=== PATIENT | male | born 1985 | race Caucasian/White ===

== ENCOUNTER → 2023-04-18 | Outpatient (CLI) | payer BC, SELFPAY ==
[2023-04-18 10:57] LABS: Absolute Lymphocyte Count 2.05 X10^3/uL (0.83-4.51); Basophil# 0.09 X10^3/uL; Eosinophil# 0.19 X10^3/uL; Hematocrit 50.8 % (40-54); Hemoglobin 16.9 g/dL (13.0-16.5); Lymphocyte # 2.05 X10^3/ul (0.83-4.51); Lymphocyte % 22.1 % (19-41); Mean Corp Hgb Conc 33.3 g/dL (32-36); Mean Corpuscular Hgb 27.6 pg (27.0-32.0); Mean Platelet Vol. 8.7 fl (6.2-12.0); Monocyte# 0.91 X10^3/uL; Monocyte% 9.8 % (0-10); NRBC Flagged by Analyzer 0 % (0-5); Neutrophil # 5.96 X10^3/uL (2.7-7.7); Neutrophil % 64.3 % (47-70); Platelet Count 268 K/mm3 (150-450); RBC Distribution Width CV 12.9 % (11.6-14.6); RBC Distribution Width SD 38.5 fl (35.1-43.9); Red Blood Count 6.12 M/mm3 (4.6-6.2); White Blood Count 9.3 K/mm3 (4.4-11.0)
[2023-04-18 11:24] LABS: ALB/GLOB Ratio 0.9 RATIO (0.9-2.4); AST(SGOT) 17 U/L (15-37); Alanine Aminotransfer ALT/SGPT 41 U/L (16-61); Albumin, Serum 3.6 g/dL (3.2-5.0); Alkaline Phosphatase 105 U/L (45-117); Anion Gap 5 (5-15); BUN 11 mg/dL (7-18); BUN/Creat Ratio 10.7 RATIO (10-20); Calcium,Total 9.1 mg/dL (8.5-10.1); Chloride 106 mmol/L (98-107); Cholesterol 235 mg/dL (200); Creatinine, Serum 1.03 mg/dL (0.70-1.30); EST Glomerular Filtration Rate 87 mL/min (>60); Est Glom Filt Rate - Afr Amer 105 mL/min (>60); Globulin 4.1 g/dL (2.2-4.2); Glucose 92 mg/dL (74-106); High Density Lipoprotein 45 mg/dL; PSA,Total- Diagnostic 0.96 ng/mL (0.0-4.0); Potassium 3.7 mmol/L (3.5-5.1); Protein, Total 7.7 g/dL (6.4-8.2); Sodium Level 136 mmol/L (136-145); Triglycerides 121 mg/dL; Very Low Density Lipoprotein 24 mg/dL (5-40)
== END | disposition home or self-care (01) ==
LOC: LAB 10:26
PROVIDERS: PCP Nurse Practitioner Family; Referring Provider Nurse Practitioner Family; Visit Provider Nurse Practitioner Family
DX: Z00.00 Encounter for general adult medical examination without abnormal findings (principal)
CPT/HCPCS: 36415; 80053; 80061; 84153; 85025

== ENCOUNTER → 2023-10-17 | Outpatient (CLI) | payer BC, SELFPAY ==
--- OUTSIDE RECORDS SUMMARY | 2023-10-17 10:33 | XMS RPT_ITS | CCD ---
Author Name Unknown Address [facility] [facility] [address] [place] [address] Organization [facility] Care Team Providers Care Balance Engineer Name Role Phone Alejandro Lima MD Unavailable Medications Current Medications Medication Drug Class(es) Dates Sig (Normalized) Sig (Original) Pediatric Oriekksk-Sucebyoi-P (MULTIVITAMINS WITH MINERALS/IRON) chewable tablet (1 source) Start: 07-11-2014 take 1 tablet by mouth once daily Pediatric Multivit-Minera ls-C (MULTIVITAMINS WITH MINERALS/IRON) chewable tablet Take 1 Tab by mouth daily. 30 Tab 2 07/11/2014 Active sulfamethoxazole 800 mg / trimethoprim 160 mg oral tablet (1 source) Dihydrofolate Reductase Inhibitor Antibacterial, Sulfonamide Antimicrobial Start: 03-30-2017 take 1 tablet by mouth twice daily sulfamethoxazol e-trimethoprim (BACTRIM DS) 800-160 MG per tablet Take 1 Tablet by mouth 2 times daily. 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, level unspecified, initial encounter] Onset: 06-27-2014 02-25-2017 Chronic Encounters Encounter Date Encounter Type Care Provider Facility Start: 11-16-2022 Letter encounter Alejandro Garrett Work Phone: [facility] Plan of Treatment Date Care Activity Detail Author Start: 2036 Shingles (RZV) Vacci ne (1 of 2) Shingles (RZV) Vaccine (1 of 2) [facility] Start: 07-03-2022 Influenza vaccination Influenza Vacc ine (#1) [facility] Start: 2021 Lipid panel [facility] Start: 2004 Hepatitis C screening Hepatitis C An tibody [facility] Start: 2004 Tetanus + diphtheria + acellular pertussis vaccine (product) Tdap Booster [facility] Start: 2001 HIV screening HIV Test [facility] Start: 02-10-1987 COVID-19 Vaccine (#1) COVID-19 Vacci ne (#1) [facility] Immunizations Immunization Date Immunization Notes Care Provider Fa cility 11-29-2003 TD(adult) unspecifie d formulation Alejandro Lima MD Work Phone: [facility] 03-09-2000 hepatitis B vaccine, pediatric or pediatric/adolescent dosage Alejandro Lima MD Work Phone: [facility] 05-20-1999 hepatitis B vaccine, pediatric or pediatric/adolescent dosage Alejandro Lima MD Work Phone: [facility] 04-08-1999 hepatitis B vaccine, pediatric or pediatric/adolescent dosage Alejandro Lima MD Work Phone: [facility] 04-08-1999 measles, mumps and r ubella virus vaccine Alejandro Lima MD Work Phone: [facility] 03-21-1992 diphtheria, tetanus toxoids and pertussis vaccine Alejandro Lima MD Work Phone: [facility] 03-21-1992 trivalent poliovirus vaccine, live, oral Alejandro Lima MD Work Phone: [facility] 08-19-1988 diphtheria, tetanus toxoids and pertussis vaccine Alejandro Lima MD Work Phone: [facility] 08-19-1988 trivalent poliovirus vaccine, live, oral Alejandro Lima MD Work Phone: [facility] 02-12-1988 haemophilus influenz ae type b vaccine, conjugate unspecified formulation Alejandro Lima MD Work Phone: [facility] 12-18-1987 measles, mumps and r ubella virus vaccine Alejandro Lima MD Work Phone: [facility] 01-24-1987 diphtheria, tetanus toxoids and pertussis vaccine Alejandro Lima MD Work Phone: [facility] 1986 diphtheria, tetanus toxoids and pertussis vaccine Alejandro Lima MD Work Phone: [facility] 1986 trivalent poliovirus vaccine, live, oral Alejandro Lima MD Work Phone: [facility] 1986 diphtheria, tetanus toxoids and pertussis vaccine Alejandro Lima MD Work Phone: [facility] 1986 trivalent poliovirus vaccine, live, oral Alejandro Lima MD Work Phone: [facility] Payers Date Payer Category Payer Unknown ANTHEM - BLUE CR [place] BLUE CROSS/HMO,PPO,POS [id number] 2013-Present [address] [place] [address] PPO 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) [facility] Start: 05-22-2020 Alcohol intake [facility] Start: 1985 [facility] Assigned At [facility] Procedure Code Equipment Code Equipment Origin al Text Equipment Identifier Dates Allograft Bone C hips 15cc [id number] - [id number] Start: 07-02-2015 Cement Bone Simp carola [id number] 001 - [id number] Start: 05-14-2015 Advance Directives Latest Code Status on File Code Status Date Activated Date Inactivated Comments Full Code 02/25/2017 2:30 PM 03/02/2017 7:53 AM Code Status History Code Status Date Activated Date Inactivated Comments Full Code 05/14/2015 11:39 AM 05/16/2015 9:02 PM Full Code 01/01/2015 3:33 PM 01/03/2015 11:07 PM Full Code 07/30/2014 4:43 PM 08/06/2014 4:37 PM Full Code 07/18/2014 10:59 AM 07/23/2014 8:49 PM Additional Source Comments Care Teams (unrecognized sec tion and content) FOR RECORDS PERTAINING TO PATIENTS WHO ARE OR HAVE BEEN ENROLLED IN A CHEMICAL DEPENDENCY/SUBSTANCEABUSE PROGRAM, SOME INFORMATION MAY BE OMITTED. This clinical summary was aggregated from multiple sources. Caution should be exercised in using it in the provision of clinical care. This summary normalizes information from multiple sources, and as a consequence, information in this document may materially change the coding, format and clinical context of patient data. In addition, data may be omitted in some cases. CLINICAL DECISIONS SHOULD BE BASED ON THE PRIMARY CLINICAL RECORDS. [facility]. provides no warranty or guarantee of the accuracy or completeness of information in this document.
== END | disposition home or self-care (01) ==
LOC: SL 10:12
PROVIDERS: PCP Nurse Practitioner Family; Referring Provider Nurse Practitioner Family; Visit Provider Nurse Practitioner Family
DX: R06.83 Snoring (principal); G47.30 Sleep apnea, unspecified; R40.0 Somnolence
CPT/HCPCS: 95806

== ENCOUNTER → 2023-11-08 | Outpatient (CLI) | payer BC, SELFPAY ==
--- OUTSIDE RECORDS SUMMARY | 2023-11-08 20:18 | XMS RPT_ITS | CCD ---
Author Name Unknown Address [facility] [facility] [address] [place] [address] Organization [facility] Care Team Providers Care Call Center Dispatcher Name Role Phone Alejandro Lima MD Unavailable Medications Current Medications Medication Drug Class(es) Dates Sig (Normalized) Sig (Original) Pediatric Yvswxvsf-Wsuefpea-E (MULTIVITAMINS WITH MINERALS/IRON) chewable tablet (1 source) [...] 11-16-2022 Letter encounter Alejandro Garrett Work Phone: [facility] Plan of Treatment Date Care Activity Detail Author Start: 2036 Shingles (RZV) Vacci ne (1 of 2) Shingles (RZV) Vaccine (1 of 2) [facility] Start: 07-03-2022 Influenza vaccination Influenza Vacc ine (#1) [facility] Start: 2021 Lipid panel Cholesterol [facility] h Start: 2004 Hepatitis C screening Hepatitis C An tibody [facility] Start: 2004 Tetanus + diphtheria + acellular pertussis vaccine (product) Tdap Booster [facility] Start: 2001 HIV screening HIV Test [facility] Start: 02-10-1987 COVID-19 Vaccine (#1) COVID-19 Vacci ne (#1) [facility] Immunizations Immunization Date Immunization Notes Care Provider Fa cility 11-29-2003 TD(adult) unspecifie d formulation Alejandro Lima MD Work Phone: [facility] 03-09-2000 hepatitis B vaccine, pediatric or pediatric/adolescent dosage Alejandro Lima MD Work Phone: [facility] 05-20-1999 hepatitis B vaccine, pediatric or pediatric/adolescent dosage Alejandro Lima MD Work Phone: [facility] 04-08-1999 hepatitis B vaccine, pediatric or pediatric/adolescent dosage Alejandro Lima MD Work Phone: [facility] 04-08-1999 measles, mumps and r ubella virus vaccine Alejandro Lima MD Work Phone: [facility] 03-21-1992 diphtheria, tetanus toxoids and pertussis vaccine Alejandro Lima MD Work Phone: [facility] 03-21-1992 trivalent poliovirus vaccine, live, oral Alejandro Lima MD Work Phone: [facility] 08-19-1988 diphtheria, tetanus toxoids and pertussis vaccine Alejandro Lima MD Work Phone: [facility] 08-19-1988 trivalent poliovirus vaccine, live, oral Alejandro Lima MD Work Phone: [facility] 02-12-1988 haemophilus influenz ae type b vaccine, conjugate unspecified formulation Alejandro Lima MD Work Phone: [facility] 12-18-1987 measles, mumps and r ubella virus vaccine Alejandro Lima MD Work Phone: [facility] 01-24-1987 diphtheria, tetanus toxoids and pertussis vaccine Alejandro Lima MD Work Phone: [facility] 1986 diphtheria, tetanus toxoids and pertussis vaccine Alejandro Lima MD Work Phone: [facility] 1986 trivalent poliovirus vaccine, live, oral Alejandro Lima MD Work Phone: [facility] 1986 diphtheria, tetanus toxoids and pertussis vaccine Alejandro Lima MD Work Phone: [facility] 1986 trivalent poliovirus vaccine, live, oral Alejandro Lima MD Work Phone: [facility] Payers Date Payer Category Payer Unknown ANTHEM - BLUE CR [place] BLUE CROSS/HMO,PPO,POS [id number] 2013-Present [address] [place] [address] PPO [id number] Social History Date Type Detail Facility Start: 05-12-2015 Tobacco smoking status VAIS Never smoked tobacco [facility] Work Phone: Start: 05-12-2015 Tobacco use and exposure Smokeless tobacco non-user [facility] Start: 05-22-2020 Alcohol intake Current non-dr verification lead of alcohol (finding) [facility] Start: 05-22-2020 Alcohol intake [facility] Start: 1986 [facility] Assigned At [facility] Procedure Code Equipment Code Equipment Origin al Text Equipment Identifier Dates Allograft Bone C hips 15cc [id number] - [id number] Start: 07-02-2015 Cement Bone Simp carola [id number] 1 001 - [id number] Start: 05-14-2015 Advance Directives Latest Code [...] BE BASED ON THE PRIMARY CLINICAL RECORDS. [facility]. provides no warranty or guarantee of the accuracy or completeness of information in this document.
== END | disposition home or self-care (01) ==
PROVIDERS: PCP Nurse Practitioner Family; Visit Provider Nurse Practitioner Family
DX: G47.33 Obstructive sleep apnea (adult) (pediatric) (principal)
CPT/HCPCS: 95811

== ENCOUNTER → 2023-12-01 | Outpatient (CLI) | payer BC, SELFPAY ==
--- OUTSIDE RECORDS SUMMARY | 2023-12-01 19:36 | XMS RPT_ITS | CCD ---
Author Name Unknown Address [facility] [facility] [address] [place] [address] Organization [facility] Care Team Providers Care Vocational Aide Name Role Phone Alejandro Lima MD Unavailable Medications Current Medications Medication Drug Class(es) Dates Sig (Normalized) Sig (Original) Pediatric Rnapepez-Ywxefqxv-X (MULTIVITAMINS WITH MINERALS/IRON) chewable tablet (1 source) [...] 11-16-2022 Letter encounter Alejandro Garrett Work Phone: [facility] Plan of Treatment Date Care Activity Detail Author Start: 2036 Shingles (RZV) Vacci ne (1 of 2) Shingles (RZV) Vaccine (1 of 2) [facility] Start: 07-03-2022 Influenza vaccination Influenza Vacc ine (#1) [facility] Start: 2021 Lipid panel Cholesterol [facility] h Start: 2004 Hepatitis C screening Hepatitis C An tibody [facility] Start: 2004 Tetanus + diphtheria + acellular pertussis vaccine (product) Tdap Booster [facility] Start: 2001 HIV screening HIV Test [facility] Start: 02-10-1987 COVID-19 Vaccine (#1) COVID-19 Vacci ne (#1) [facility] Immunizations Immunization Date Immunization Notes Care Provider Fa cility 11-29-2003 TD(adult) unspecifie d formulation Alejandro Lima MD Work Phone: [facility] 03-09-2000 hepatitis B vaccine, pediatric or pediatric/adolescent dosage Alejandro Lima MD Work Phone: [facility] 05-20-1999 hepatitis B vaccine, pediatric or pediatric/adolescent dosage Alejandro Lima MD Work Phone: [facility] 04-08-1999 hepatitis B vaccine, pediatric or pediatric/adolescent dosage Alejandro Lima MD Work Phone: [facility] 04-08-1999 measles, mumps and r ubella virus vaccine Alejandro Lima MD Work Phone: [facility] 03-21-1992 diphtheria, tetanus toxoids and pertussis vaccine Alejandro Lima MD Work Phone: [facility] 03-21-1992 trivalent poliovirus vaccine, live, oral Alejandro Lima MD Work Phone: [facility] 08-19-1988 diphtheria, tetanus toxoids and pertussis vaccine Alejandro Lima MD Work Phone: [facility] 08-19-1988 trivalent poliovirus vaccine, live, oral Alejandro Lima MD Work Phone: [facility] 02-12-1988 haemophilus influenz ae type b vaccine, conjugate unspecified formulation Alejandro Lima MD Work Phone: [facility] 12-18-1987 measles, mumps and r ubella virus vaccine Alejandro Lima MD Work Phone: [facility] 01-24-1987 diphtheria, tetanus toxoids and pertussis vaccine Alejandro Lima MD Work Phone: [facility] 1986 diphtheria, tetanus toxoids and pertussis vaccine Alejandro Lima MD Work Phone: [facility] 1986 trivalent poliovirus vaccine, live, oral Alejandro Lima MD Work Phone: [facility] 1986 diphtheria, tetanus toxoids and pertussis vaccine Alejandro Lima MD Work Phone: [facility] 1986 trivalent poliovirus vaccine, live, oral Alejandro Lima MD Work Phone: [facility] Payers Date Payer Category Payer Unknown ANTHEM - BLUE CR OSS BLUE CROSS/HMO,PPO,POS [id number] 2013-Present [address] [place] [address] PPO 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 [facility]. provides no warranty or guarantee of the accuracy or completeness of information in this document.
== END | disposition home or self-care (01) ==
LOC: SL 12:22
PROVIDERS: PCP Nurse Practitioner Family; Visit Provider Nurse Practitioner Family
DX: G47.33 Obstructive sleep apnea (adult) (pediatric) (principal)

== ENCOUNTER → 2024-07-03 | Outpatient (CLI) | payer BC, SELFPAY ==
[2024-07-03 17:55] LABS: Absolute Lymphocyte Count 2.09 X10^3/uL (0.83-4.51); Absolute Neutrophil Count 7.1 X10^3/uL (2.0-7.7); Basophil# 0.08 X10^3/uL; Basophil% 0.8 % (0-1); Eosinophil# 0.18 X10^3/uL; Eosinophils% 1.7 % (0-5); Hematocrit 44.3 % (40-54); Hemoglobin 14.2 g/dL (13.0-16.5); Lymphocyte # 2.09 X10^3/ul (0.83-4.51); Lymphocyte % 19.9 % (19-41); Mean Corp Hgb Conc 32.1 g/dL (32-36); Mean Corpuscular Hgb 27.3 pg (27.0-32.0); Mean Platelet Vol. 9.7 fl (6.2-12.0); Monocyte# 0.91 X10^3/uL; Monocyte% 8.7 % (0-10); NRBC Flagged by Analyzer 0 % (0-5); Neutrophil # 7.11 X10^3/uL (2.7-7.7); Neutrophil % 67.9 % (47-70); Platelet Count 271 K/mm3 (150-450); RBC Distribution Width CV 13.6 % (11.6-14.6); RBC Distribution Width SD 42.2 fl (35.1-43.9); Red Blood Count 5.21 M/mm3 (4.6-6.2); White Blood Count 10.5 K/mm3 (4.4-11.0)
[2024-07-03 18:13] LABS: ALB/GLOB Ratio 0.9 RATIO (0.9-2.4); AST(SGOT) 28 U/L (15-37); Alanine Aminotransfer ALT/SGPT 58 U/L (16-61); Albumin, Serum 3.7 g/dL (3.2-5.0); Alkaline Phosphatase 95 U/L (45-117); Anion Gap 8 (5-15); BUN 12 mg/dL (7-18); BUN/Creat Ratio 12.9 RATIO (10-20); Calcium,Total 9.9 mg/dL (8.5-10.1); Chloride 106 mmol/L (98-107); Cholesterol 200 mg/dL (200); Creatinine, Serum 0.93 mg/dL (0.70-1.30); EST Glomerular Filtration Rate 97 mL/min (>60); Est Glom Filt Rate - Afr Amer 117 mL/min (>60); Globulin 4.2 g/dL (2.2-4.2); Glucose 86 mg/dL (74-106); High Density Lipoprotein 48 mg/dL; Potassium 3.7 mmol/L (3.5-5.1); Protein, Total 7.9 g/dL (6.4-8.2); Sodium Level 136 mmol/L (136-145); Triglycerides 112 mg/dL; Very Low Density Lipoprotein 22 mg/dL (5-40)
== END | disposition home or self-care (01) ==
LOC: BFHLAB 14:49
PROVIDERS: PCP Nurse Practitioner Family; Referring Provider Nurse Practitioner Family; Visit Provider Nurse Practitioner Family
DX: Z00.01 Encounter for general adult medical examination with abnormal findings (principal)
CPT/HCPCS: 36415; 80053; 80061; 85025

== ENCOUNTER → 2025-08-15 | Outpatient (CLI) | payer BC, SELFPAY ==
--- NOTE | 2025-08-15 09:52 | RAD_ITS ---
PROCEDURE: SHOULDER MIN 2 VIEWS 08/15/2025 REASON FOR EXAM: PAIN for 1 month. TECHNIQUE: Procedure Code: [facility] Modality: DX Procedure: SHOULDER MIN 2 VIEWS Laterality: Left COMPARISON: None. FINDINGS: BONES: No acute fracture or focal osseous lesion. JOINTS: No dislocation. Minimally narrowed glenohumeral joint. Minimal marginal osteophyte along the inferior glenoid. Preserved acromioclavicular joint. SOFT TISSUES: Small calcification along the humeral head margin in the supraspinatus tendon region. RAD/Shoulder min 2 Views IMPRESSION: 1. No acute osseous abnormality. 2. Findings suggest rotator cuff calcific tendinopathy. 3. Early degenerative changes. Reading Location: [id number]
[2025-08-15 10:02] LABS: Hematocrit 44.7 % (40-54); Hemoglobin 14.9 g/dL (13.0-16.5); Immature Granulocytes Count 0.080 X10^3/uL (0.0-0.0); Mean Corp Hgb Conc 33.3 g/dL (32-36); Mean Corpuscular Volume 83.7 fL (80-94); Mean Platelet Vol. 9.0 fl (6.2-12.0); NRBC Flagged by Analyzer 0 % (0-5); Platelet Count 263 K/mm3 (150-450); RBC Distribution Width CV 13.0 % (11.6-14.6); RBC Distribution Width SD 39.4 fl (35.1-43.9); Red Blood Count 5.34 M/mm3 (4.6-6.2); White Blood Count 7.7 K/mm3 (4.4-11.0)
[2025-08-15 11:31] LABS: AST(SGOT) 23 U/L (<=37); Alanine Aminotransfer ALT/SGPT 36 U/L (<=46); Albumin, Serum 4.2 g/dL (3.5-5.0); Alkaline Phosphatase 92 U/L (40-129); Anion Gap 10 (5-15); BUN 12 mg/dL (4-19); BUN/Creat Ratio 14.2 RATIO (10-20); Calcium,Total 9.4 mg/dL (7.6-11.0); Carbon Dioxide 22.8 mmol/L (21.0-32.0); Chloride 107 mmol/L (98-108); Cholesterol 200 mg/dL (<=200); Globulin 3.4 g/dL (2.2-4.2); Glucose 108 mg/dL (70-99); Low Density Lipoprotein Calc. 140 mg/dL; Potassium 4.1 mmol/L (3.3-5.1); Triglycerides 91 mg/dL; Very Low Density Lipoprotein 18 mg/dL (5-40); cholesterol:hdl ratio screen 4.59
== END | disposition home or self-care (01) ==
PROVIDERS: PCP Nurse Practitioner Family; Referring Provider Nurse Practitioner Family; Visit Provider Nurse Practitioner Family
DX: Z00.00 Encounter for general adult medical examination without abnormal findings (principal); M25.512 Pain in left shoulder
CPT/HCPCS: 36415; 73030; 80053; 80061; 85025